=== PATIENT | male | born 1955 | race Asian ===

== ENCOUNTER 2019-05-15 23:54 | Inpatient (IN) | payer OTHER ==
[~2019-05-15] VITALS: Ht 162.6 cm; Wt 61.5 kg
[2019-05-16 00:05] VITALS: Ht 162.6 cm; Wt 61.5 kg
--- NOTE | 2019-05-16 00:16 | NUR ---
PT BROUGHT IN BY [facility] FOR COMPLAINT OF GENERALIZED ABD PAIN
--- NOTE | 2019-05-16 00:16 | NUR ---
PT BROUGHT IN BY [facility] FOR COMPLAINT OF GENERALIZED ABD PAIN APPROX 45 MIN PRIOR TO ARRIVAL. PT STATES IT WOKE HIM UP FROM SLEEP. UPON ARRIVAL TO ED ABD PAIN HAD RESOLVED. ABD SOFT. NON RIGID. NON DISTENDED. NO NAUSEA OR VOMITING. DIALYSIS SHUNT TO LUE. LAST DIALYSIS ON MONDAY. PT AWAKE AND ALERT. BREATHING EVEN UNLABORED. NO DISTRESS NOTED. MSE COMLETED BY DR. CASTREJON. AT BEDSIDE. PT ON CM. CONTINUE TO MONITOR.
[2019-05-16 00:47] LABS: BASOPHIL % 1.1 % (0-2); PLATELET COUNT 170 x10^3mcL (130-400)
[2019-05-16 00:49] LABS: RED CELL DISTRIBUTION WIDTH 16.4 % (11.5-14.5)
--- NOTE | 2019-05-16 00:59 | NUR ---
PT REPORTING INTERMITTENT ABDOMINAL PAIN MD CASTREJON MADE AWARE PT REFUSED IV PAIN MEDS PT REFUSED IM SHOT PT STATES HE JUST WANT "TABS"
[2019-05-16 01:13] LABS: ALBUMIN 3.3 g/dL (3.4-5.0); BILIRUBIN TOTAL 0.29 mg/dL (0.20-1.00); CALCIUM 8.9 mg/dL (8.5-10.1); CARBON DIOXIDE 29.2 mmol/L (21-32); POTASSIUM SERUM 5.1 mmol/L (3.5-5.1); TOTAL PROTEIN, SERUM 7.3 g/dL (6.4-8.2)
[2019-05-16 01:16] LABS: CREATININE SERUM 10.7 mg/dL (0.7-1.3)
--- NOTE | 2019-05-16 01:17 | NUR ---
PT STATES HIS PAIN IS INTERMITTENT AND DOES NOT WANT THE TYLENOL AT THIS TIME AND WANTS TO WAIT UNTIL THE PAIN COMES BACK
[2019-05-16 03:00] LABS: MAGNESIUM 2.6 mg/dL (1.8-2.4)
[2019-05-16 03:01] LABS: CHOLESTEROL/HDL RATIO 1.7
[2019-05-16] MEDS ORDERED: NEPHRO-VITE VITA1 EA PO (03:20)
[2019-05-16] MEDS ORDERED: NITROGLYCERIN0.4 MG SL (03:20)
[2019-05-16] MEDS ORDERED: SENSIPAR30 M1 PO (03:20)
[2019-05-16] MEDS ORDERED: ISOSORBIDE MONO60 MG PO (03:21)
[2019-05-16] MEDS ORDERED: [UNRECOGNIZED DRUG - CODE] IJ (03:22)
[2019-05-16] MEDS ORDERED: CARDURA4 MG PO (03:22)
[2019-05-16] MEDS ORDERED: PRAVASTATIN SOD40 M1 PO (03:23)
[2019-05-16] MEDS ORDERED: CLONIDINE HCL0.2 MG PO (03:23)
[2019-05-16] MEDS ORDERED: LOTREL1 CA5 PO (03:24)
[2019-05-16] MEDS ORDERED: COLACE100 MG PO (03:24)
[2019-05-16] MEDS ORDERED: AURYXIA1 GM PO (03:24)
[2019-05-16] MEDS ORDERED: MINOXIDIL2.5 MG PO (03:25)
[2019-05-16] MEDS ORDERED: HYDROXYZINE PAM25 MG PO (03:25)
[2019-05-16] MEDS ORDERED: CLOPIDOGREL75 M1 PO (03:26)
[2019-05-16] MEDS ORDERED: BENADRYL ALLERG25 M1 PO (03:26)
[2019-05-16] MEDS ORDERED: DOXAZOSIN MESYLA2 MG PO (03:26)
[2019-05-16] MEDS ORDERED: METOPROLOL SUCC50 M2 PO (03:27)
--- NOTE | 2019-05-16 03:32 | NUR ---
REPORT CALLED TO RICARDO DAMICO
[2019-05-16 04:21] VITALS: BP 136/62
--- NOTE | 2019-05-16 05:00 | NUR ---
PATIENT RECEIVED FROM ER VIA WHEELCHAIR, AWAKE, ALERT, ORIENTED X4 DUE TO COMPLAIN OF ABDOMINAL PAIN. RESPIRATION EVEN AND UNLABORED, ON ROOM AIR. HEMODIALYSIS PATIENT (TTHS), AV FISTULA TO ROXI +THRILL AND BRUIT. LBM 05/15/2019, DENIES GI DISCOMFORT AT THIS TIME. PER PATIENT HE STILL VOIDS A LITTLE BIT. SKIN INTACT. GENERALIZED WEAKNESS TO EXTREMITIES. WILL CONTINUE TO MONITOR.
--- NOTE | 2019-05-16 06:01 | NUR ---
PATIENT RESTING IN BED AT THIS TIME. RESPIRATION EVEN AND UNLABORED, ON ROOM AIR. DENIES PAIN. SPOT CHECK BLOOD SUGAR= 101 MG/DL. LEFT ARM PRECAUTION OBSERVED, AV FISTULA TO LEFT FA. ASSISTED WITH NEEDS. SAFETY OBSERVED. PLACED BED IN THE LOWEST POSITION. PLACED CALL LIGHT WITHIN REACH AT ALL TIMES.
--- NOTE | 2019-05-16 07:30 | NUR ---
PT ENDORSE TO ME THIS MORNING/ LAYING IN BED RESTING. AA/O X4 /BREATHING EVEN AND UNLABORED ON RA/ NO ACUTE RESP DISTRESS OR SOB NOTED. MEDSURG/ DENIES ANY CP OR PRESSUE. HD PT/ PER PT LAST HD WAS ON MONDAY LESS THEN 2 L OUT. AVF NOTED ROXI/ THRILL AND BRUIT PRESENT. STRICK I & O AND FR OF 1200 DAILY. GEN WEAKNESS KNOWS TO CALL FOR ASSIST. IV TO THE RFA INTACT AND PATENT/ HEPLOCKED. REMAINS NPO. WILL CONTINUE TO MONITOR.
--- NOTE | 2019-05-16 07:52 | NUR ---
PT REFUSING AM LABS TRIED TO EDUCATE THE IMPORTANCE OF HAVING LABS DOWN THIS AM, REFUSE.
[2019-05-16 09:21] VITALS: BP 135/45; BP 165/49
--- NOTE | 2019-05-16 11:00 | NUR ---
DR. ORLANDO AT BEDSIDE, PER DR. ORLANDO NO PROCEDURE NEEDED. PT IS CLEAR ON HIDA SCAN TOMORROW AM.
[2019-05-16 11:13] LABS: UA SPECIFIC GRAVITY 1.015 (1.005-1.035); microscopic required? YES; urine erythrocyte 1+ (NEGATIVE)
[2019-05-16 11:25] LABS: AMPHETAMINE QUAL UR NONE DETECTED (See below)
--- NOTE | 2019-05-16 12:00 | NUR ---
NIYAH FROM RADIOLOGY CALLED AND STATED THE SOONEST SHE CAN START HIDA SCAN IS TOMORROW MORNING. DR. BRISCOE MADE AWARE. PT WILL REMAIN NPO AFTER MIDNIGHT AND NIYAH FROM RAD WILL PICK PT UP 05/17 BETWEEN 0830-9AM.
--- NOTE | 2019-05-16 15:00 | NUR ---
PT CURRENTLY HAVE HD DONE. TOLERATING WELL. DENIES ANY ABD PAIN OR DISCOMFORT. WILL CONTINUE TO MONITIOR.
[2019-05-16 16:21] VITALS: BP 113/55
--- NOTE | 2019-05-16 17:54 | NUR ---
HD COMPLETE, TOTAL OF 3L OUT CURRENT BP IS 110/55, HR 69, TEMP 98.8 / TOLERATED WELL. WILL CONTINUE TO MONITOR.
[2019-05-16 17:57] VITALS: BP 110/55
--- NOTE | 2019-05-16 18:36 | NUR ---
NO ACUTE CHANGES AT THIS TIME, NO ACUTE RESP DISTRESS OR SOB NOTED. DENIES ANY ABD PAIN OR DISCOMFORT AT THIS TIME. SITTING UP IN BED HAVING DINNER. IV TO THE RFA INTACT AND PATENT/ HEPLOCKED. PT WILL BE NPO AT MIDNIGHT FOR HIDA SCAN TOMORROW AM BETWEEN 0830-9AM PICKUP BY RAD BY WHEELCHAIR , PT IS AWARE. WILL ENDORSE TO INCOMING RN.
[2019-05-16 20:01] VITALS: BP 123/55
--- NOTE | 2019-05-16 20:34 | NUR ---
PT CURRENTLY RESTING IN BED, NO ACUTE DISTRESS. A/O X4. NO TELE, MED/SURG. DENIES CHEST PAIN. PULSES PALPABLE IN ALL EXTREMITIES, NO EDEMA NOTED. LUNG SOUNDS CTA BILATERALLY, DENIES SOB. BOWEL SOUNDS ACTIVE, LAST BM 05/16/19. C/O ABD PAIN 2/10. ANURIC. LAST HD 05/16/19, 3L OUT. GENERALIZED WEAKNESS. SKIN INTACT. IV PATENT AND INTACT. BED IN LOWEST POSITION, SIDE RAILS UP X2, CALL LIGHT WITHIN REACH. WILL CONTINUE TO MONITOR.
--- NOTE | 2019-05-17 00:12 | NUR ---
PT CURRENTLY RESTING IN BED, NO ACUTE DISTRESS. WILL CONTINUE TO MONITOR.
[2019-05-17 05:13] VITALS: BP 124/53
--- NOTE | 2019-05-17 06:04 | NUR ---
PT SLEPT PERIODICALLY THROUGHOUT NIGHT, NO ACUTE DISTRESS. ALL NEEDS MET AND ATTENDED TO. NO SIGNIFICANT CHANGES. IV PATENT AND INTACT. BED IN LOWEST POSITION, SIDE RAILS UP X2, CALL LIGHT WITHIN REACH. WILL ENDORSE CARE TO ONCOMING NURSE.
[2019-05-17 06:22] LABS: BASOPHIL % 1.1 % (0-2); PLATELET COUNT 185 x10^3mcL (130-400)
[2019-05-17 06:41] LABS: CALCIUM 9.7 mg/dL (8.5-10.1); CARBON DIOXIDE 31.5 mmol/L (21-32); PHOSPHOROUS 5.8 mg/dL (2.5-4.9); POTASSIUM SERUM 4.7 mmol/L (3.5-5.1)
[2019-05-17 07:01] LABS: CREATININE SERUM 8.6 mg/dL (0.7-1.3)
[2019-05-17 08:16] VITALS: BP 117/47
[2019-05-17 10:19] LABS: ALBUMIN 3.3 g/dL (3.4-5.0); BILIRUBIN DIRECT 0.11 mg/dL (0.0-0.2); BILIRUBIN TOTAL 0.3 mg/dL (0.20-1.00); TOTAL PROTEIN, SERUM 7.3 g/dL (6.4-8.2)
[2019-05-17 10:28] VITALS: BP 131/54
--- NOTE | 2019-05-17 10:40 | NUR ---
PATIENT BACK FROM HIDA SCAN, REQUESTING FOR FOOD AND COFFEE. INFORMED HIM WILL NEED TO WAIT FOR HIDA SCAN RESULTS. PATIENT STATES "MY STOMACH IS STARTING TO HURT FROM NOT EATING YET". FRONT DESK TEAM MEMBER MELIZA MADE AWARE, PER FRONT DESK TEAM MEMBER WILL NEED HIDA SCAN RESULTS AND WILL F/U WITH DR ORLANDO IF PATIENT MAY NEED SURGERY. PATIENT MADE AWARE. VITALS TAKEN AND CHARTED.
--- NOTE | 2019-05-17 10:55 | NUR ---
DR ORLANDO AT BEDSIDE, PATIENT W/ NO COMPLAINTS OF ABD PAIN AT THIS TIME, ALSO REPORTS HAVING NORMAL BM'S. PER DR ORLANDO, WILL WAIT FOR HIDA SCAN RESULTS. PATIENT COOPERATIVE WITH PLAN OF CARE AT THIS TIME.
--- NOTE | 2019-05-17 11:42 | NUR ---
DR OBSS AT BEDSIDE, INFORMED PATIENT OF [facility] SURGERY. PLAVIX WAS TAKEN THIS MORNING, HOLD OFF ON SURGERY. PER PATIENT, DENIES ABD PAIN SINCE 2 DAYS AGO BUT WILL SPEAK WITH BEFORE DECIDING ON SURGERY. PER DR BOSS, PATIENT WILL CONTINUE PLAVIX IF HE DOES NOT WANT SURGERY, BUT IF HE DECIDES ON SURGERY, WILL PLACE ORDER TO HOLD PLAVIX AND HAVE SURGERY AFTER 48 HOURS FROM LAST PLAVIX ADMIN. ROBERT HAIDER MADE AWARE.
--- NOTE | 2019-05-17 11:57 | NUR ---
PER PATIENT, HE IS REFUSING SURGERY FOR NOW AND REQUESTING TO GO HOME AND SEEK SURGERY WHEN HE CHANGES HIS MIND. INFORMED HIM HE MAY NEED TO GO THRU HIS PCP FOR OUTPATIENT SURGERY. INFORMED STUDENT SERVICES VICE PRESIDENT MELIZA, PATIENT MAY BE DISCHARGED TOMORROW IF ABLE TO TOLERATE MEALS TODAY. PATIENT MADE AWARE BUT EXPRESSES DESIRE TO GO HOME TODAY. INFORMED HIM OF OPTION TO SIGN AMA FORM BUT ENCOURAGED PATIENT TO TRY EATING FIRST AND SEE IF HE CAN TOLERATE IT. WAITING FOR LUNCH MEAL.
--- NOTE | 2019-05-17 12:32 | NUR ---
Recommendation(s): 1. Continue current plan of care.
--- NOTE | 2019-05-17 12:32 | NUR ---
Initial Nutrition Assessment (253-A): CAROLINA SIMONS 64F Dx: Choledocholithiasis PMHx: HTN, ESRD on HD (//Mon), CAD, CABG 2011 PSHx: CABG Labs: BUN 38H, Cr 8.6H, Alb 3.3L, Phos 5.8H, AT 13L, AlkPh 136H, Lipase 570H, BNP 424.74H Meds: Cardura, Catapres, Colace, Imdur-ER, Lipitor, Loniten, Lopressor, Nitro-stat, Protonix, Zofran Diet: NPO PO intake since admission: NPO Ht: 64in Wt: 135# BMI: 23.3 Bed scale: 130.2# IBW: 130 %IBW: 104 UBW: ~145# Age: 64 Food Allergies: NKFA Skin: Intact Jorge: 19 Edema: none noted GI: Last BM: 05/16 RD Note (05/17): Per H&P, pt came in for abd pain, intermittent pressure 7/10, periumbilical radiating to RUQ. Pt previously on renal diet, but placed NPO r/t HIDA scan performed. Noted pt on fluid restriction 1200mL. Dr Downs nephro consult pending. Pt discussed in bed huddles, pt w/ small stone in bile duct from HIDA scan, possible Sx. Visited pt bedside, denies any abd pain at this time, wants to know when he can start heating again, states Dr won't run any more tests/procedures. All pt's questions answered at this time. Problem with N/V/D/C: none Problems with: Chewing: No Swallowing: No Current appetite: Good Recent wt change: N/A %wt change: N/A Vitamin/Supplement use: Renvela w/ every meal Special diet at home: Renal Physical activity: walks everyday, 30min morning, 30min afternoon Nutrition education given (specify specific nutrition education and handout given): None given at this time. Food-drug interactions? Education given? None given at this time. Estimated Nutritional Needs Based on actual body weight (61.5kg) Energy: 5114-9103 kcal/day (30-35 kcal/kg geriatric maintenance, ERD on HD) Protein: 68-74 g/day (1.1-1.2 g/kg for ESRD on HD) Fluid: <=1200mL (fluid restriction, ESRD on HD), or per MD Nutrition Diagnosis: 1. Altered GI function r/t choledocholithiasis AEB abd pain, HIDA scan, possible Sx Intervention: 1. Continue current plan of care. Monitor/Evaluate: Goal: PO intake at least 75% of estimated needs Monitor: PO intake, Labs, GI function F/U in 3-5 days as moderate risk 05/20-05/22
--- NOTE | 2019-05-17 13:12 | NUR ---
PATIENT TOLERATED LUNCH MEAL WELL, DENIES PAIN OR N/V. EXPRESSES DESIRE TO GO HOME, INFORMED HIM OF AMA FORM BUT ENCOURAGED HIM TO STAY TONIGHT FOR HIS SAFETY. PATIENT COOPERATIVE FOR NOW AND WILLING TO STAY. WILL CONT TO MONITOR.
[2019-05-17 16:49] VITALS: BP 139/56
--- NOTE | 2019-05-17 18:15 | NUR ---
PATIENT TOLERATED DINNER MEAL WELL, DENIES ANY PAIN OR N/V. FAMILY AT BEDSIDE. NO SIGN OF ACUTE DISTRESS OR SINGIFCANT CHANGE IN CONDITION. WILL CONT TO MONITOR AND ENDORSE TO NOC NURSE.
--- NOTE | 2019-05-17 19:30 | NUR ---
RECIEVED PATIENT AT START OF SHIFT A/O X4. MED-SURG. DENIES PAIN. NO SOB ON RA, BREATHS REG AND EVEN. IV TO RFA IS SALINE LOCKED AND PATENT. ROXI SHUNT HAS BRUIT AND THRILL. BED LOCKED AND IN LOWEST POSITION. CALL LIGHT AND BEDSIDE TABLE WITHIN REACH.
[2019-05-17 20:36] VITALS: BP 139/55
--- NOTE | 2019-05-18 00:16 | NUR ---
PATIENTS EYES ARE CLOSED, BREATHS EVEN AND REGULAR. NO SIGNS OF DISTRESS. IV SALINE LOCKED. CALL LIGHT AND BEDSIDE TABLE WITHIN REACH.
[2019-05-18 05:12] VITALS: BP 121/49
[2019-05-18 06:07] LABS: BASOPHIL % 0.9 % (0-2); PLATELET COUNT 181 x10^3mcL (130-400)
--- NOTE | 2019-05-18 06:17 | NUR ---
PATIENT IS AWAKE. DENIES PAIN. NO SOB ON RA. REPORTED SLEEPING WELL LAST NIGHT. IV IS SALINE LOCKED AND PATENT. BED LOCKED AND IN LOWEST POSITION. CALL LIGHT AND BEDSIDE TABLE WITHIN REACH. WILL ENDORSE CARE TO DAYSHIFT NURSE.
[2019-05-18 07:08] LABS: RED CELL DISTRIBUTION WIDTH 16.1 % (11.5-14.5)
--- NOTE | 2019-05-18 08:04 | NUR ---
HEMODIALYSIS NURSE AT BEDSIDE NOW INITIATING HEMODIALYSIS. PATIENT ALERT/ORIENTED ABLE TO MAKE NEEDS KNOWN AND FOLLOW COMANDS. NO RESP DISTRESS ON RA. BOWEL SOUNDS ACTIVE, ABD SOFT AND ONTENDER. DENIES N/V. TOLERATED BREAKFAST MEAL WELL. AV SHUNT TO ROXI BRUIT/THRILL NOTED. PERIPHERAL PULSES PALPABLE, NO EDEMA. SKIN INTACT. IV ACCESS TO RFA. NO COMPLAINTS OF PAIN OR DISCOMFORT. NO SIGN OF ACUTE DISTRESS. CALL LIGHT WITHIN REACH.
[2019-05-18 08:18] VITALS: BP 132/54
[2019-05-18 08:54] LABS: CARBON DIOXIDE 26.8 mmol/L (21-32); POTASSIUM SERUM 4.5 mmol/L (3.5-5.1)
[2019-05-18 08:55] LABS: CREATININE SERUM 11.6 mg/dL (0.7-1.3)
[2019-05-18 09:45] VITALS: BP 132/54
--- NOTE | 2019-05-18 11:18 | NUR ---
HEMODIALYSIS IN PROGRESS, PATIENT TOLERATING WELL AT THIS TIME. REQUESTING FOR SNACKS, CRACKERS AND JELLO PROVIDED. WILL CONT TO MONITOR.
--- NOTE | 2019-05-18 11:49 | NUR ---
HEMODIALYSIS COMPLETE, 2L OUT. PATIENT TOLERATED WELL. DENIES ANY DISCOMFORT AT THIS TIME.
[2019-05-18 12:42] VITALS: BP 122/56
== END 2019-05-18 14:06 | disposition home or self-care (01) | DRG 438 ==
LOC: ED 23:54 → MU 05-16 02:37
PROVIDERS: Emergency Medicine; Internal Medicine Gastroenterology; ADMIT General Practice
PROC: 5A1D70Z Performance of Urinary Filtration, Intermittent, Less than 6 Hours Per Day (ICD-10-PCS; principal; 2019-05-16)
PROC: 5A1D70Z Performance of Urinary Filtration, Intermittent, Less than 6 Hours Per Day (ICD-10-PCS; 2019-05-18)
DX: K85.10 Biliary acute pancreatitis without necrosis or infection (principal); N18.6 End stage renal disease; I12.0 Hypertensive chronic kidney disease with stage 5 chronic kidney disease or end stage renal disease; K80.62 Calculus of gallbladder and bile duct with acute cholecystitis without obstruction; E83.41 Hypermagnesemia; Z53.29 Procedure and treatment not carried out because of patient's decision for other reasons; D63.1 Anemia in chronic kidney disease; R73.03 Prediabetes; I25.10 Atherosclerotic heart disease of native coronary artery without angina pectoris; Z68.27 Body mass index [BMI] 27.0-27.9, adult; Z95.1 Presence of aortocoronary bypass graft; Z99.2 Dependence on renal dialysis
CPT/HCPCS: 78226; 82962; 83880; A9537; C9113; G0378; J0500; J0696; J7030; J7060; Q0092; Q0177